=== PATIENT | female | born 2005 | race Caucasian/White ===

== ENCOUNTER 2025-03-08 14:40 | Outpatient (REF) | payer MEDICAID, SELFPAY ==
[2025-03-08 14:27] LABS: HCT 39.5 % (36.0-46.0); HGB 13.0 g/dL (11.2-15.7); MCH 28.1 pg (27.0-33.0); MCHC 32.9 % (32.0-36.0); MCV 85 fL (80-95); MPV 10.5 fL (8.0-11.0); Platelet Count 329 10^3/uL (130-400); RBC 4.63 10^6/uL (3.93-5.22); RDW 12.4 % (11.7-14.6); RDW-SD 38.2 fL; WBC 5.65 10^3/uL (4.4-10.8)
[2025-03-08 16:32] LABS: ALT 18 U/L (14-59); AST 15 U/L (15-37); Albumin 4.3 g/dL (3.4-5.0); Alkaline Phosphatase 55 U/L (46-116); Anion Gap 9.3 mmol/L (3-11); BUN 14 mg/dL (7-18); Bilirubin, Total 0.7 mg/dL (0.2-1.0); CO2 25.7 mmol/L (21.0-32.0); Calcium 9.2 mg/dL (8.5-10.1); Calculated LDL 85 mg/dL (<100); Chloride 106 mmol/L (98-107); Cholesterol 147 mg/dL (<200); Estimated GFR 108.11 (mL/min/1.73m2); Ferritin 47 ng/mL (8-252); Glucose 94 mg/dL (74-106); HDL Cholesterol 52 mg/dL (>or=50); Potassium 4.1 mmol/L (3.5-5.1); Sodium 141 mmol/L (136-145); Total Protein 8.1 g/dL (6.4-8.2); Triglyceride 52 mg/dL (<150)
[2025-03-09 19:22] LABS: Iron 87 ug/dL (50-170); Total Iron Binding Capacity 351 ug/dL (250-450); Transferrin Sat 25 % (15-50)
== END 2025-03-08 14:41 | disposition home or self-care (01) ==
LOC: NCHCN 14:40
PROVIDERS: PCP Nurse Practitioner Family; Visit Provider Nurse Practitioner Family
DX: Z00.00 Encounter for general adult medical examination without abnormal findings (principal); D64.9 Anemia, unspecified
CPT/HCPCS: 80053; 80061; 85027; 82728; 83540; 83550